=== PATIENT | female | born 1985 | race Caucasian/White ===

== ENCOUNTER 2017-10-29 18:16 | Inpatient (IN) | payer BC ==
[~2017-10-29] VITALS: Ht 165.1 cm; Wt 76.0 kg
[~2017-10-29 18:16] MED LIST: FERR1TAB23; PRENTAB65 PO
[2017-10-29 18:34] VITALS: Ht 165.1 cm; Wt 76.0 kg
[2017-10-29] MEDS ORDERED: LACTATED RINGER'S 1000ML 1,000 ML IV PRN (19:02)
[2017-10-29 19:21] LABS: HEMATOCRIT 33.9 % (37-47); MEAN CELL VOLUME 84.5 fL (80-100); MEAN CORPUSCULAR HEMOGLOBIN 29.9 pg (25-34); MEAN CORPUSCULAR HGB CONC 35.4 g/dl (32-36); MEAN PLATELET VOLUME 8.8 fL (7.4-10.4); PLATELET COUNT 178 K/uL (130-400); RED CELL DISTRIBUTION WIDTH CV 13.2 % (11.5-14.5); RED CELL DISTRIBUTION WIDTH SD 40.4 fL (36.4-46.3); WHITE BLOOD COUNT 10.27 K/uL (4.8-10.8)
[2017-10-29] MEDS ORDERED: EpHEDrine SULFATE INJ 50 MG/ML AMP ONE (19:30)
[2017-10-29] MEDS ORDERED: FENTANYL 2MCG/ML ROPIV 1.25MG/ML 100ML BAG EPI ONE (19:30)
[2017-10-29] MEDS ORDERED: FENTANYL CITRATE INJ 50 MCG/1 ML 2 ML VIAL ONE (19:30)
[2017-10-29] MEDS ORDERED: BUPIVACAINE 0.25% 30 ML VIAL ONE (19:30)
[2017-10-29] MEDS ORDERED: LACTATED RINGER'S 1000ML 1,000 ML IV SCH (19:45)
[2017-10-29] MEDS ORDERED: LACTATED RINGER'S 1000ML 500 ML IV PRN (20:10)
[2017-10-29] MEDS ORDERED: NALOXONE HCL INJ 1 MG in SODIUM CHLORIDE 0.9% 1000ML 1,000 ML IV PRN (20:10)
[2017-10-29] MEDS ORDERED: OXYTOCIN 30 UNITS/500ML NSS IV ONE ×2 (20:13→21:17)
[2017-10-29] MEDS ORDERED: DiphenhydrAMINE HCL 50 MG/ML VIAL IV PRN (20:15)
[2017-10-29] MEDS ORDERED: EpHEDrine SULFATE INJ 50 MG/ML AMP IV PRN (20:15)
[2017-10-29] MEDS ORDERED: ONDANSETRON INJ 2 MG/ML 2 ML VIAL IV PRN (20:15)
[2017-10-29] MEDS ORDERED: NALOXONE HCL INJ 0.4 MG/1 ML VIAL/CARP IV PRN (20:15)
[2017-10-29] MEDS ORDERED: FENTANYL 2MCG/ML ROPIV 1.25MG/ML 100ML BAG EPI PRN (20:15)
[2017-10-29] MEDS ORDERED: NALBUPHINE HCL INJ 10 MG/ML AMP IV PRN (20:15)
[2017-10-29] MEDS ORDERED: OXYTOCIN 30 UNITS/500ML NSS IV PRN (21:45)
[2017-10-29] MEDS ORDERED: OXYTOCIN INJ 20 UNITS in LACTATED RINGER'S 1000ML 1,000 ML IV SCH (21:45)
[2017-10-29] MEDS ORDERED: HYDROCORTISONE ACETATE 25 MG SUPP PR PRN (21:45)
[2017-10-29] MEDS ORDERED: ACETAMINOPHEN 325 MG TAB PO PRN (21:45)
[2017-10-29] MEDS ORDERED: LANOLIN OINT EXT PRN (21:45)
[2017-10-29] MEDS ORDERED: BENZOCAINE 20% AER SPR 82.5 GM CAN EXT PRN (21:45)
[2017-10-29] MEDS ORDERED: ACETAMINOPHEN/CODEINE 300/30MG TAB PO PRN ×2 (21:45)
[2017-10-29] MEDS ORDERED: OXYCODONE/ACETAMINOPHEN 5-325 TAB PO PRN (21:45)
[2017-10-29] MEDS ORDERED: SUPERCREAM 0.870 % 15GM JAR EXT PRN (21:45)
[2017-10-29] MEDS ORDERED: MISOPROSTOL 200 MCG TAB PR ONE (21:45)
--- NOTE | 2017-10-29 22:18 | HISTORY & PHYSICAL EXAMINATION ---
DATE OF ADMISSION: 10/29/2017 HISTORY OF PRESENT ILLNESS: The patient is a 32-year-old G2, P1, due date 11/02/2017 making her 39 weeks and 3 days today, presented to labor and delivery with contractions. She was examined and found to be 7cm with bulging membranes. The patient was admitted. On admission, she had no shortness of breath, no chills, no fever. heart rate was category 1. COURSE: Unremarkable. LABS: Blood type is A positive, antibody negative, rubella immune, GBS negative. PAST MEDICAL HISTORY: History of varicella and skin moles. PAST SURGICAL HISTORY: Dental procedure. SOCIAL HISTORY: The patient denies tobacco, drug or alcohol use. FAMILY HISTORY: Noncontributory. OBSTETRICAL AND GYNECOLOGICAL HISTORY: The patient delivered a live infant female in December of 2015. weight 7 pounds 9 ounces. PHYSICAL EXAMINATION: GENERAL: Well-developed, well-nourished white female in no acute distress. HEART: S1, S2, regular rhythm and rate. LUNGS: Clear to auscultation bilaterally. ABDOMEN: Gravid. PELVIC: On admission is 7 cm, 100% effaced, 0 station. EXTREMITIES: No cyanosis, clubbing, edema. ASSESSMENT AND PLAN: A 32-year-old G2, P1 at 39 and 3 weeks, admitted for labor. Plan is to anticipate vaginal delivery. MTDD
[2017-10-30] VITALS: BP 125/71; PULSE 78; TEMP 36.8
--- NOTE | 2017-10-30 00:47 | DELIVERY SUMMARY ---
DATE OF OPERATION: 10/29/2017 The patient delivered a live infant female in occiput posterior presentation. There was loose nuchal cord which was easily reduced. Infant was delivered. There was terminal meconium noted. was placed on mother's abdomen, cord was clamped and cut. Cord blood and cord gas were obtained. Placenta was spontaneously delivered. Inspection of the placenta shows a 3-vessel cord and placenta is grossly normal. Estimated blood loss is 500 mL. 's Apgars are 8 and 9. Inspection of the perineum and vagina showed a second-degree midline laceration which was repaired in layers with 2-0 and 3-0 Vicryl. Rectal exam post repair showed good sphincter tone and no sutures palpated in the rectum. All instruments were removed from the vagina including retractors, needles, sponges and accounted for x2. Baby and mother are doing well in recovery. I attest to the content of the Intraoperative Record and any orders documented therein. Any exception s are noted below.
[2017-10-30 04:25] VITALS: BP 119/72; PULSE 93; TEMP 37.1
--- NOTE | 2017-10-30 07:24 | Anesthesia Procedure Note ---
Anesthesia Epidural Removal Nt Date & Time Oct 30, 2017 at 07:23 Vital Signs Pain Intensity: 0.0 Vital Signs Past 12 Hours Date Time Temp Pulse Resp B/P (MAP) Pulse Ox O2 Delivery O2 Flow Rate FiO2 10/30/17 04:25 37.1 93 18 119/72 (88) 10/30/17 00:00 36.8 78 18 125/71 (89) Room Air 10/30/17 00:00 Room Air Notes Mental Status: alert / awake / arousable, participated in evaluation Nausea / Vomiting: adequately controlled Pain: adequately controlled Airway Patency, RR, SpO2: stable & adequate BP & HR: stable & adequate Hydration State: stable & adequate Neuraxial Anesthesia: was administered Anesthetic Complications: no major complications apparent, pt satisfied with anesthetic care Epidural: removed without complications, with tip intact
[2017-10-30 08:35] VITALS: BP 119/75; PULSE 100; TEMP 36.5; O2SAT 97
[2017-10-30 08:47] LABS: HEMATOCRIT 34.9 % (37-47); HEMOGLOBIN 11.9 g/dL (12.0-16.0)
[2017-10-30] MEDS: PRENATAL VITAMIN TAB PO SCH (09:03)
[2017-10-30] MEDS: DOCUSATE SODIUM 100 MG CAP PO SCH ×2 (09:03→19:37)
[2017-10-30] MEDS: FERROUS SULFATE 325 MG TAB PO SCH (09:03)
[2017-10-30 11:55] VITALS: BP 118/64; PULSE 83; TEMP 36.1; O2SAT 98
[2017-10-30] MEDS: IBUPROFEN 600 MG TAB PO PRN ×2 (13:09→23:28)
--- NOTE | 2017-10-30 13:30 | OB/GYN Progress Note ---
FLARE BREAKER Progress Note Date of Service Oct 30, 2017. Subjective conversation w/ patient Ambulation: ambulating normally Voiding: no voiding problems Passing Gas: Yes Diet Tolerance: Regular Diet Lochia: Small Feeding Type: Breast Feeding Objective Vital Signs Date Time Temp Pulse Resp B/P (MAP) Pulse Ox O2 Delivery O2 Flow Rate FiO2 10/30/17 08:35 97 Room Air 10/30/17 08:35 36.5 100 18 119/75 (90) 97 Room Air 10/30/17 04:25 37.1 93 18 119/72 (88) 10/30/17 00:00 36.8 78 18 125/71 (89) Room Air 10/30/17 00:00 Room Air Physical Exam General Appearance: WELL-APPEARING, NO APPARENT DISTRESS Laboratory Results Last 24 Hours Test 10/29/17 19:12 10/30/17 08:32 White Blood Count 10.27 K/uL Red Blood Count 4.01 M/uL Hemoglobin 12.0 g/dL 11.9 g/dL Hematocrit 33.9 % 34.9 % Mean Corpuscular Volume 84.5 fL Mean Corpuscular Hemoglobin 29.9 pg Mean Corpuscular Hemoglobin Concent 35.4 g/dl RDW Standard Deviation 40.4 fL RDW Coefficient of Variation 13.2 % Platelet Count 178 K/uL Mean Platelet Volume 8.8 fL Assessment and Plan Post- Day Number: 1 Continue Routine Care: TENT D/C IN am
[2017-10-30 15:50] VITALS: BP 104/61; PULSE 74; TEMP 36.6; O2SAT 98
[2017-10-30 19:40] VITALS: BP 113/67; PULSE 87; TEMP 36.9; O2SAT 98
[2017-10-30] MEDS ORDERED: BISACODYL 5 MG TABEC PO SCH (20:00)
[2017-10-31 00:38] VITALS: BP 119/74; PULSE 80; TEMP 36.7
[2017-10-31] MEDS ORDERED: BISACODYL 10 MG SUPP PR PRN (07:00)
[2017-10-31 07:04] LABS: HEMATOCRIT 31.3 % (37-47); HEMOGLOBIN 10.6 g/dL (12.0-16.0); MEAN CELL VOLUME 87.4 fL (80-100); MEAN CORPUSCULAR HEMOGLOBIN 29.6 pg (25-34); MEAN CORPUSCULAR HGB CONC 33.9 g/dl (32-36); MEAN PLATELET VOLUME 9.4 fL (7.4-10.4); PLATELET COUNT 155 K/uL (130-400); RED CELL DISTRIBUTION WIDTH CV 13.6 % (11.5-14.5); RED CELL DISTRIBUTION WIDTH SD 43.7 fL (36.4-46.3); WHITE BLOOD COUNT 10.48 K/uL (4.8-10.8)
[2017-10-31 07:30] VITALS: BP 125/78; PULSE 80; TEMP 36.7
[2017-10-31] MEDS: PRENATAL VITAMIN TAB PO SCH (08:27)
[2017-10-31] MEDS: DOCUSATE SODIUM 100 MG CAP PO SCH (08:27)
[2017-10-31] MEDS: FERROUS SULFATE 325 MG TAB PO SCH (08:27)
[2017-10-31] MEDS: IBUPROFEN 600 MG TAB PO PRN (08:29)
--- NOTE | 2017-10-31 08:55 | OB/GYN Progress Note ---
WIRE STRANDER Progress Note Date of Service Oct 31, 2017. Subjective conversation w/ patient, physical exam Ambulation: ambulating normally Voiding: no voiding problems Passing Gas: Yes Diet Tolerance: Regular Diet Lochia: Moderate Feeding Type: Breast Feeding Review of Systems Constitutional: No fever, No chills, No sweats, No weight loss, No weakness, No fatigue, No problem reported Respiratory: No cough, No sputum, No wheezing, No shortness of breath, No dyspnea on exertion, No dyspnea at rest, No hemoptysis, No problem reported Cardiac: No chest pain, No orthopnea, No PND, No edema, No claudication, No palpitations, No problem reported Breast: No see HPI, No breast lump, No change in shape, No nipple discharge, No breast pain, No problem reported Abdomen: No pain, No nausea, No vomiting, No diarrhea, No constipation, No GI bleeding, No problem reported Female : No see HPI, No dysuria, No urinary frequency, No hematuria, No incontinence, No abnormal vaginal bleeding, No vaginal discharge, No problem reported Objective Vital Signs Date Time Temp Pulse Resp B/P (MAP) Pulse Ox O2 Delivery O2 Flow Rate FiO2 10/31/17 00:40 Room Air 10/31/17 00:38 36.7 80 18 119/74 (89) Room Air 10/30/17 19:40 36.9 87 16 113/67 (82) 98 Room Air 10/30/17 15:50 36.6 74 16 104/61 (75) 98 Room Air 10/30/17 15:50 98 Room Air 10/30/17 11:55 36.1 83 16 118/64 (82) 98 Room Air Physical Exam General Appearance: WELL-APPEARING, WD/WN, NO APPARENT DISTRESS Respiratory/Chest: chest non-tender, lungs clear, normal breath sounds Cardiovascular: regular rate, rhythm, no edema, no gallop Abdomen: normal bowel sounds, non tender, soft Fundus: Firm Incision Description: Clean, Dry & Intact Extremities: normal range of motion, non-tender, normal inspection Laboratory Results Last 24 Hours Test 10/31/17 06:19 White Blood Count 10.48 K/uL Red Blood Count 3.58 M/uL Hemoglobin 10.6 g/dL Hematocrit 31.3 % Mean Corpuscular Volume 87.4 fL Mean Corpuscular Hemoglobin 29.6 pg Mean Corpuscular Hemoglobin Concent 33.9 g/dl RDW Standard Deviation 43.7 fL RDW Coefficient of Variation 13.6 % Platelet Count 155 K/uL Mean Platelet Volume 9.4 fL Assessment and Plan Post- Day Number: 2 Continue Routine Care: Vd day 32 pt doing well disch home with instruction
[2017-10-31] MEDS ORDERED: FERR1TAB23 PO (08:58)
[2017-10-31] MEDS ORDERED: MTR600X PO (08:58)
--- NOTE | 2017-10-31 09:00 | Discharge Instructions ---
Discharge Instructions Date of Service Oct 31, 2017. Admission Reason for Admission: Check Labor Discharge Discharge Diagnosis / Problem: vaginal delivery Discharge Goals Goal(s): Routine recovery after delivery Activity Recommendations Activity Limitations: as noted below ACTIVITY RECOMMENDATIONS: * Gradual return to full activity over the next 2-3 weeks. * No lifting - nothing heavier than baby over the next 2-3 weeks. * Do not engage in vigorous exercise, sexual activity or sports until cleared by your physician. * Do not drive or operate any motorized equipment until cleared by your physician. * You may shower/bathe daily. BREAST CARE: If you are not breast feeding: * Wear a supportive bra 24 hours a day for one to two weeks. * Avoid stimulating your breasts and nipples as much as possible during the first few weeks after delivery. * When taking a shower, have the warm water hit your back, not breasts. * When your breasts feel full, apply ice packs. Usually three to four times a day helps ease the discomfort. * Take a mild pain medication (Tylenol/Motrin) when you are uncomfortable. If breast feeding: * Use breast milk to lubricate nipples. Lansinoh cream may be used for sore nipples. You do not need to remove cream prior to breast feeding. If using a different brand of cream, check the label for directions regarding removal of cream prior to nursing. * Wear a supportive bra. * If having problems with breasts or breast feeding, call a dietitian consultant or your health care provider. EPISIOTOMY CARE: After delivery, if you have an episiotomy (stitches), the following steps will ease discomfort and aid healing. * For the first 24 hours after delivery, place ice packs next to your episiotomy to help reduce swelling. * After the first 24 hour-period, sitz baths, either portable or in the tub, are suggested. A shower with a shower arm sprayed over the episiotomy may be comforting. * Cleopatra care should be done after each voiding and bowel movement. Squirt warm water from a plastic bottle over the perineum (region of the body between the anus and urinary opening) and pat dry. * Use Dermoplast to ease discomfort. Shake container. [place] directly over the episiotomy. * Place a Tucks on a clean sanitary pad next to your episiotomy. OVER THE COUNTER MEDICATION: * For discomfort or pain, you may use Acetaminophen (Tylenol), Ibuprofen (Advil ), or Naproxen (Aleve) following the package directions. * For constipation you may use Colace following the package directions. SPECIAL CARE INSTRUCTIONS: When you are discharged from the hospital, it is important for you to follow the instructions listed below: * During the first week at home, you should be able to care for yourself and your baby. In addition, the usual light household activities are encouraged. * Limit your activities to the way you feel. Do not try to clean the house or move furniture. Be sensible. * If you actively engage in sports and have done so up until the time of your delivery, you may resume these activities as soon as you feel able. This may take up to one month or even longer. Use good judgment. * Continue to take your vitamins for at least six weeks after the of your baby. * Your diet need not be limited unless you were on a special diet before your delivery. Breast-feeding mothers need around 2500 calories per day and at least 64-80 ounces of fluid per day (8 to 10 glasses). * You should eat foods from the four major food groups. Crash diets or fad diets are to be avoided. Eating lean meats, fresh fruits and vegetables, low-fat dairy products, high fiber foods and a regular exercise program, will help you get back to your pre- weight without putting your health at risk. * Constipation is sometimes a problem after delivery. Take a mild laxative as needed. If breast feeding, Milk of Magnesia is acceptable to use. You may use a suppository or Fleets enema if no episiotomy. * A daily shower or tub bath is suggested. Be sure to thoroughly and gently dry the perineum. * A bloody vaginal discharge will usually continue until around four weeks post . A small amount of bleeding may continue for as long as six weeks. Vaginal discharge changes from the bright red bleeding after delivery to pink then brownish and finally yellowish-pink before becoming white and disappearing. * Bleeding may increase with activity. Your first period may come in 4-8 weeks. If you are breast feeding, your period may be delayed even longer. * [place] (sex) can begin whenever both you and your partner feel comfortable and do not have any form of genital infection. It is recommended that you wait until after your return appointment and discuss with your physician. If you have questions, please talk to your health care practitioner. A condom should be used to prevent infection and . * Foreplay, gentle intercourse and lubrication is very important the first several times to prevent pain. A water-based lubricant such as K-Y jelly or Astroglide may be used. * Tampons may be used six weeks after delivery. * Douching should be avoided for 6 weeks after delivery. * If you have RH negative blood and your baby is RH positive, you will receive RHOGAM by injection prior to discharge. The nurse will give you a card to keep with you that has the date and place that you received RHOGAM after delivery. * During your care, you had a Rubella screen done to check for the presence of rubella antibodies in your blood. If your test was negative, you will receive a Rubella vaccine prior to discharge. This vaccine may cause a fever, soreness at the injection site and flu-like symptoms. If these symptoms persist, notify your health care practitioner. is not advised for three months after a Rubella vaccine. There is a higher chance of having a baby with defects if conceived within three months of getting the vaccine. * If you were discharged 24 hours from delivery or before 48 hours: Visiting nurses will come to your home 48 hours after discharge to assess you and your baby. The visiting nurse will meet with you while you are in the hospital to arrange a time and get directions to your home. * Verbalizes understanding of car seat law as reviewed with patient nursing. * Car Seat hand-out given and reviewed with patient by nursing. * Shaken baby information reviewed with patient by nursing. Call you doctor if: * Heavy bleeding (saturating several pads an hour) or passing clots the size of your fist. * A fever >101 degrees F (38.3 degrees C) on two occasions four hours apart and/or chills. * Unusual pain in the pelvic or vaginal areas. * "Baby Blues" lasting longer than two weeks. If you have any questions or concerns, call your health care practitioner at . FOLLOW-UP VISIT: * Please call the office at to schedule a 6 week examination. It is important you keep this appointment. * It is important for you to make arrangements for either yearly or twice yearly check-ups thereafter. . Current Hospital Diet Patient's current hospital diet: Regular Diet Discharge Diet Recommended Diet: Regular Diet Pending Studies Studies pending at discharge: no Medical Emergencies . Who to Call and When: Medical Emergencies: If at any time you feel your situation is an emergency, please call 911 immediately. . Non-Emergent Contact Non-Emergency issues call your: Specialist . . "Provider Documentation" section prepared by Andrea Brewer. .
[2017-10-31 10:16] VITALS: BP_DIAS 78; PULSE 80; TEMP 36.7
== END 2017-10-31 11:15 | disposition home or self-care (01) | DRG 775 ==
LOC: C.OPB 18:16 → C.LD 18:16 → C.OPB 21:01 → C.OBG 10-30 00:11
PROVIDERS: ADMIT Obstetrics & Gynecology; ATTEND Obstetrics & Gynecology
PROC: 10E0XZZ Delivery of Products of Conception, External Approach (ICD-10-PCS; principal; 2017-10-29)
PROC: 0KQM0ZZ Repair Perineum Muscle, Open Approach (ICD-10-PCS; principal; 2017-10-29)
DX: O70.1 Second degree perineal laceration during delivery (principal); O77.0 Labor and delivery complicated by meconium in amniotic fluid; O69.81X0 Labor and delivery complicated by cord around neck, without compression, not applicable or unspecified; Z3A.39 39 weeks gestation of pregnancy; Z37.0 Single live birth

== ENCOUNTER 2021-06-17 15:28 | Inpatient (IN) ==
[2021-06-17] MEDS ORDERED: OXYTOCIN 30 UNITS/500 ML BAG IV PRN ×2 (16:01→18:59)
[2021-06-17] MEDS ORDERED: LACTATED RINGER'S 1,000 ML IV PRN (16:01)
[2021-06-17] MEDS ORDERED: BUPIVACAINE 0.25% 30 ML VIAL ONE (16:09)
[2021-06-17] MEDS ORDERED: ePHEDrine sulfate 50 MG/ML AMP ONE (16:09)
[2021-06-17] MEDS ORDERED: fentaNYL citrate 100 MCG/2 ML VIAL ONE (16:09)
[2021-06-17] MEDS ORDERED: SODIUM CHLORIDE 0.9% INJ 10 ML VIAL ONE (16:09)
[2021-06-17] MEDS ORDERED: fentaNYL 2MCG/ML ROPIVACAINE 1.25MG/ML 100 ML BAG EPI ONE (16:10)
[2021-06-17 16:19] LABS: Hematocrit (blood only) 34.4 % (37-47); Hemoglobin 11.7 g/dL (12.0-16.0); Mean Corpuscular Hemoglobin 29.5 pg (25-34); Mean Corpuscular Volume 86.6 fL (80-100); Platelet Count 198 K/uL (130-400); RDW Coefficient of Variation 13.7 % (11.5-14.5); RDW Standard Deviation 43.9 fL (36.4-46.3); Red Blood Count 3.97 M/uL (4.2-5.4); White Blood Count 13.96 K/uL (4.8-10.8)
--- NOTE | 2021-06-17 16:23 | History & Physical Report ---
Date of Service June 17, 2021 Assessment & Plan (1) : (2) SROM (spontaneous rupture of membranes): Plan: epidural planned anticipate normal delivery History of Present Illness Chief Complaint: Term in labor at 38.4 weeks Primary Care Provider: Diego Hodge MD 35 F P2012 at 38.4 weeks with SROM clear fluid and onset of labor. GBS is negative. Covid is negative. FHT CAt 1. 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 x1 Review of Systems All systems reviewed & are unremarkable except as noted in HPI & below Physical Exam Constitutional: WD/WN, vitals as above + acute distress Respiratory: normal respiratory effort, lungs clear to auscultation Cardiovascular: RRR, no murmur, no edema Neurologic: patellar DTR's 2+ bilat, sensation intact Psychiatric: A+Ox3, euthymic affect Genitourinary: no vaginal lesions, no adnexal mass OB Exam Abdomen: + heart tones and + vertex Manual OB Exam: + cervical dilation 5 cm, + cervical effacement 80%, + station -2 and + amniotic fluid clear Results & Data ([facility]) Vital Signs (Past 12 Hours) Vital Signs Pulse BP Pulse Ox 06/17/21 16:14 73 100 06/17/21 16:09 79 99 06/17/21 16:06 72 121/64 Laboratory Results 06/17/21 06/17/21 16:04 16:08 WBC 13.96 H RBC 3.97 L Hgb 11.7 L Hct 34.4 L MCV 86.6 MCH 29.5 MCHC 34.0 RDW Std Deviation 43.9 RDW Coeff of Karla 13.7 Plt Count 198 MPV 9.0 COVID-19 Eval [facility] Code Status & VTE Plan VTE Prophylaxis Plan VTE Prophylaxis will be ordered: No
--- NOTE | 2021-06-17 16:43 | Delivery Summary ---
Vaginal Delivery Summary Date of Service June 17, 2021 Vaginal Delivery Summary Delivery Note live male VALENCIA over intact perineum with delayed cord clamping and Apgars 9/9 weight pending. Cord blood obtained followed by spontaneous delivery of intact placetna. No tears. EBL 100 ml. Final sponge and instrument count are correct. Mom and baby stable.
[2021-06-17] MEDS ORDERED: IBUPROFEN 600 MG TAB PO ONE (16:56)
[2021-06-17] MEDS ORDERED: SUPERCREAM 0.870% 15 GM JAR EXT PRN (18:59)
[2021-06-17] MEDS ORDERED: HYDROCORTISONE ACETATE 25 MG SUPP PR PRN (18:59)
[2021-06-17] MEDS ORDERED: DIPHTHERIA/TETANUS/PERTUSSIS 0.5 ML SYR/VIAL IM ONE (18:59)
[2021-06-17] MEDS ORDERED: ACETAMINOPHEN 325 MG TAB PO PRN (18:59)
[2021-06-17] MEDS ORDERED: BENZOCAINE 20% AER SPR 82.5 GM CAN EXT PRN (18:59)
[2021-06-17] MEDS: DOCUSATE SODIUM 100 MG CAP PO SCH (21:01)
[2021-06-17] MEDS: IBUPROFEN 600 MG TAB PO PRN (21:01)
[2021-06-17] MEDS: FERROUS SULFATE 325 MG TAB PO SCH (21:02)
[2021-06-18 06:40] LABS: Hematocrit (blood only) 32.9 % (37-47); Hemoglobin 11.1 g/dL (12.0-16.0); Mean Corpuscular Hemoglobin 29.3 pg (25-34); Mean Corpuscular Hgb Conc 33.7 g/dL (32-36); Mean Corpuscular Volume 86.8 fL (80-100); Platelet Count 180 K/uL (130-400); RDW Coefficient of Variation 13.7 % (11.5-14.5); RDW Standard Deviation 43.6 fL (36.4-46.3); Red Blood Count 3.79 M/uL (4.2-5.4); White Blood Count 14.76 K/uL (4.8-10.8)
[2021-06-18] MEDS ORDERED: PRENATAL VITAMIN 1 TAB PO SCH ×2 (08:00→09:00)
--- NOTE | 2021-06-18 08:21 | Obstetrical Progress Note ---
Date of Service June 18, 2021 Assessment & Plan Admission and Anticipated Discharge Date Admission Date: June 17, 2021 Subjective Patient is seen and examined. She feels well, no complaints. Ambulating without dizziness Voiding without difficulty Tolerating regular diet with out N&V Bleeding is minimal No fever/ chills/ CP/ SOB/ N&V/ Leg pain Breast feeding without problems Vital Signs Temp Pulse Resp BP Pulse Ox 06/18/21 03:30 36.7 C 80 16 112/68 98 06/17/21 23:00 36.9 C 89 16 110/65 96 Lab Results 06/17/21 06/17/21 06/17/21 Range/Units 16:04 16:04 16:08 WBC 13.96 H (4.8-10.8) K/uL RBC 3.97 L (4.2-5.4) M/uL Hgb 11.7 L (12.0-16.0) g/dL Hct 34.4 L (37-47) % MCV 86.6 (80-100) fL MCH 29.5 (25-34) pg MCHC 34.0 (32-36) g/dL RDW Std Deviation 43.9 (36.4-46.3) fL RDW Coeff of Karla 13.7 (11.5-14.5) % Plt Count 198 (130-400) K/uL MPV 9.0 (7.4-10.4) fL COVID-19 Eval Order Covid19 [facility] SARS-CoV-2, RNA, NAAT NEGATIVE (NEGATIVE) 06/18/21 Range/Units 06:31 WBC 14.76 H (4.8-10.8) K/uL RBC 3.79 L (4.2-5.4) M/uL Hgb 11.1 L (12.0-16.0) g/dL Hct 32.9 L (37-47) % MCV 86.8 (80-100) fL MCH 29.3 (25-34) pg MCHC 33.7 (32-36) g/dL RDW Std Deviation 43.6 (36.4-46.3) fL RDW Coeff of Karla 13.7 (11.5-14.5) % Plt Count 180 (130-400) K/uL MPV 9.0 (7.4-10.4) fL COVID-19 Eval Order SARS-CoV-2, RNA, NAAT (NEGATIVE) PE: General: Alert, orientedx3, NAD Abd: soft, NT, fundus firm, below Umbilicus Perineum intact, Lochia rubra minimal Ext; NT, no edema AP: 35 yo s/p , ppd# 1 VSS Afebrile doing well Continue routine care All questions were answered D/C home after dinner if baby will be discharged Results & Data ([facility]) Vital Signs (Past 12 Hours) Vital Signs Temp Pulse Resp BP Pulse Ox 06/18/21 03:30 36.7 C 80 16 112/68 98 06/17/21 23:00 36.9 C 89 16 110/65 96
[2021-06-18] MEDS: DOCUSATE SODIUM 100 MG CAP PO SCH (08:36)
[2021-06-18] MEDS: FERROUS SULFATE 325 MG TAB PO SCH (08:36)
[2021-06-18] MEDS: IBUPROFEN 600 MG TAB PO PRN ×2 (08:36→15:30)
[2021-06-18] MEDS ORDERED: bisacodyL 5 MG TABEC PO SCH (20:00)
[2021-06-19] MEDS ORDERED: bisacodyL 10 MG SUPP PR PRN (06:00)
== END 2021-06-18 19:10 | disposition home or self-care (01) | DRG 807 ==
LOC: OPB 15:28 → 4S1 15:31 → 4S2 19:30